=== PATIENT | male | born 2000 | race Caucasian/White ===

== ENCOUNTER 2025-04-29 12:38 | Emergency (ER) | payer MEDICAID, SELFPAY ==
[2025-04-29 12:43] VITALS: BP 145/82; PULSE 86; O2SAT 99
[2025-04-29 12:47] VITALS: BP 145/82; PULSE 74; RESP 16; TEMP 36.7; O2SAT 100; BMI 27.9
[2025-04-29 13:00] VITALS: BP 140/81; PULSE 66; O2SAT 100
[2025-04-29 13:30] VITALS: BP 133/76; PULSE 69; O2SAT 100
--- NOTE | 2025-04-29 13:33 | CT_ITS ---
FINAL REPORT TECHNIQUE: Thin section axial images were obtained through the cervical spine without contrast. Multiplanar reconstruction images were obtained from the axial data. Exam was performed using dose reduction techniques. CLINICAL HISTORY: Crush injury FINDINGS: There is no acute fracture or acute malalignment of the cervical spine. There is no evidence of unilateral or bilateral facet lock. Vertebral body height is preserved. No acute paraspinal abnormality is identified. IMPRESSION: No acute osseous abnormality of the cervical spine. Reviewed, Interpreted and Dictated by Calista Hardwick MD Transcribed by Maria A Dave Authenticated and [facility]
--- NOTE | 2025-04-29 13:33 | CT_ITS ---
FINAL REPORT TECHNIQUE: Thin section axial images were obtained through the lumbar spine without contrast. Sagittal and coronal reconstruction images were obtained from the axial data. Exam was performed using dose reduction techniques. CLINICAL HISTORY: Crush injury FINDINGS: There is no acute fracture or acute malalignment of the lumbar spine. Vertebral body height is preserved. There is no significant central stenosis. Paraspinal soft tissues are within normal limits. There is no paraspinal mass or fluid collection. IMPRESSION: No acute abnormality of the lumbar spine. Reviewed, Interpreted and Dictated by Calista Hardwick MD Transcribed by Maria A Dave Authenticated and [facility]
--- NOTE | 2025-04-29 13:33 | CT_ITS ---
FINAL REPORT TECHNIQUE: Thin section axial images were obtained through the thoracic spine without contrast. Sagittal and coronal images were obtained from the axial data. This study was performed with techniques to keep radiation doses as low as reasonably achievable, (ALARA). Individualized dose reduction techniques using automated exposure control or adjustment of mA and/or kV according to the patient's size were employed. CLINICAL HISTORY: Crush injury FINDINGS: There is no acute fracture of the thoracic spine. There is no malalignment. No acute paraspinal abnormality is identified. IMPRESSION: No acute osseous abnormality of the thoracic spine. Reviewed, Interpreted and Dictated by Calista Hardwick MD Transcribed by Maria A Dave Authenticated and [facility]
--- NOTE | 2025-04-29 13:33 | CT_ITS ---
FINAL REPORT TECHNIQUE: Thin section axial images were obtained from skull base to vertex without contrast. Coronal reconstruction images were obtained from the axial data. Exam was performed using dose reduction techniques such as automated exposure control, adjustment of the mA and kV according to patient size, and use of iterative reconstruction technique. CLINICAL HISTORY: Crush injury FINDINGS: There is no mass effect or midline shift. There is no hydrocephalus. There is no intracranial hemorrhage. The posterior fossa is without acute abnormality. The basilar cisterns are preserved. The soft tissues are without acute abnormality. No acute osseous abnormality is identified. IMPRESSION: No acute intracranial abnormality. Reviewed, Interpreted and Dictated by Calista Hardwick MD Transcribed by Maria A Dave Authenticated and [facility]
--- NOTE | 2025-04-29 13:39 | [facility].EDGENADL ---
Discharge Plan Disposition Patient Disposition: Home, Self-Care Condition: Good Prescriptions Prescriptions: New methocarbamol 750 mg tablet 1,500 mg PO Q8H 7 Days Qty: 42 0RF Referrals Follow up/Referrals: Provider,Referral, [Primary Care Provider, Medical] - See instructions Activity Restrictions/Add. Instructions Additional Instructions/Restrictions: You can take Robaxin for 3 times daily for 7 days for pain and muscle relaxation. If any new or worsening symptoms please return. Clinical Impressions Clinical Impression: Back pain Qualifiers: Back pain location: thoracic back pain Chronicity: acute Back pain laterality: unspecified Qualified Code(s): M54.6 - Pain in thoracic spine Stand Alone Forms Stand Alone Forms: Work/School Release Print Language Print Language: Hebrew Discharge ED Provider: Lcua Escobedo Adult HPI General Chief complaint: PAIN Stated complaint: AO 1130-Pain neck-back and head Time Seen by Provider: 04/29/25 13:17 Mode of Arrival: Ambulatory Source of Information: Patient and Significant Other Description of Symptoms (Recalled from ER Triage Doc. by RN): PATIENT PRESENTS TO ED FOR HEAD, NECK, AND BACK PAIN FOLLOWING ACCIDENT WHILE AT WORK. STATES A COWORKER FELL AND KNOCKED HIM DOWN HARD, PT HIT HEAD, NECK, AND BACK ON LUMBER AND LADDER FELL ON HIM WELL. PLACED IN C-COLLAR UNTIL C-SPINE CLEARED. History of Present Illness HPI narrative: This is a 24-year-old male patient, with no significant past medical history, who is presenting to the emergency department today for evaluation after a traumatic accident. Patient states that he was working on a job site and was holding a ladder while someone else was working approximately 8 foot high on the ladder. The ladder became unsteady and the gentleman on the ladder fell backwards and the full weight of the other person and the full weight of the ladder landed directly on the anterior aspect of his body. He was crushed between this other person/the ladder and between some wooden pallets below. He comes in complaining of head pain, neck pain, and back pain. No numbness or tingling in his treatment's. No visual deficits. No nausea or vomiting. No gait disturbances Related Data Previous Rx's ?Medication ?Instructions ?Recorded methocarbamol 750 mg tablet 1,500 mg (2 x 750 mg) PO Q8H 7 04/29/25 days #42 tabs Allergies Allergy/AdvReac Type Severity Reaction Status Date / Time No Known Allergies Allergy Verified 04/29/25 13:55 [facility] Disclaimer: The information contained in this section may have been updated after the patient was seen, as this information can be updated by other users. Social History Smoking Status: Current every day smoker alcohol intake: never current occupational status: employed Travel in the last 8 weeks?: None ROS Obtained: Yes Systems reviewed as appropriate & no additional complaints except as documented Physical Exam General General appearance: other (See MDM) Respiratory Respiratory exam: Present other (See MDM) Cardiovascular Cardiovascular exam: Present other (See MDM) Neurological Exam Neurological exam: Present other (See MDM) Medical Decision Making Medical Records Medical records reviewed: Yes I reviewed the patient's medical records. Screening: Per USPSTF and CDC recommendations, given the prevalence of disease in our region, it is our hospital?s policy to screen for HIV and viral Hepatitis for all patients aged 18 and over and those with ongoing risk factors. Landon Inquiry Pt receiving controlled substance: No Landon was queried for this patient: No Vital Signs: 04/29/25 12:43 04/29/25 12:47 04/29/25 12:47 Temperature 98.0 F 98.0 F Temperature Source Oral Pulse Rate 86 74 Pulse Rate [Right] 74 Respiratory Rate 16 16 Blood Pressure 145/82 H 145/82 H Blood Pressure [Right Arm] 145/82 H Blood Pressure Mean [Right Arm] 103 02 Sat by Pulse Oximetry 99 100 100 04/29/25 13:00 04/29/25 13:30 04/29/25 14:01 Temperature Temperature Source Pulse Rate 66 69 66 Pulse Rate [Right] Respiratory Rate Blood Pressure 140/81 133/76 130/74 Blood Pressure [Right Arm] Blood Pressure Mean [Right Arm] 02 Sat by Pulse Oximetry 100 100 99 04/29/25 14:46 Temperature 98.0 F Temperature Source Pulse Rate 63 Pulse Rate [Right] Respiratory Rate 16 Blood Pressure 152/91 H Blood Pressure [Right Arm] Blood Pressure Mean [Right Arm] 02 Sat by Pulse Oximetry Orders (Tests/Meds): ED MEDICATIONS Discontinued Medications Generic Name Dose Route Start Last Admin Trade Name Freq PRN Reason Stop Dose Admin Acetaminophen 1,000 mg 04/29/25 13:42 04/29/25 13:57 Acetaminophen 500mg Tab PO 04/29/25 13:43 1,000 mg ONCE ONE Administration Ibuprofen 400 mg 04/29/25 13:56 04/29/25 14:01 Ibuprofen 400 Mg Tablet PO 04/29/25 13:57 400 mg ONCE ONE Administration Methocarbamol 1,500 mg 04/29/25 13:42 04/29/25 13:57 Methocarbamol 500mg Tablet PO 04/29/25 13:43 1,500 mg ONCE ONE Administration ORDERS Category Date Time Status CT cervical spine wo con Stat Cat Scan 04/29/25 13:[address] head/brain wo con Stat Cat Scan 04/29/25 13:[address] lumbar spine wo con Stat Cat Scan 04/29/25 13:[address] thoracic spine wo con Stat Cat Scan 04/29/25 13:33 Completed Medical Decision Narrative: In summary, this is a 24-year-old male patient who is presenting to the emergency department today following a crush injury by a ladder/another human while in a job site. He was pinned between this a ladder and the full body weight of another person against a piece of wood. This patient has no comorbidities that would complicate their medical management or care. On initial evaluation of the patient they were resting comfortably in no acute distress and nontoxic in appearance. They are hemodynamically stable, saturating well room air, and are neurologically intact. The patient has a frontal contusion and abrasion. No scalp lacerations, hematomas, or abrasions. He has cervical spine and thoracic spine tenderness to palpation of the midline. No lumbar spine tenderness. No anterior chest wall or intra-abdominal wall tenderness. Pelvis is stable. No deformities of the extremities. Differential diagnose includes intracranial hemorrhage, cervical spine fracture, thoracic spine fracture, lumbar spine fracture, among others Workup was initiated with CT scans of the head and axial spine. Initial inventions included 1500 mg Robaxin, 15 mg Toradol, and [address] scans were personally interpreted by me and demonstrate no obvious large intracranial hemorrhages or acute bony malalignment. On reassessment of the patient he is resting comfortably in no acute distress. I have informed him of his results, and we have decided to have him take robaxin as needed at home for the next week. At this time all questions have been answered and all parties are agreeable with the decision to discharge home. Critical Care Critical Care Time Critical Care Time: No
[2025-04-29] MEDS: METHOCARBAMOL 500MG TABLET 1500 MG PO (13:57)
[2025-04-29] MEDS: ACETAMINOPHEN 500MG TAB 1000 MG PO (13:57)
[2025-04-29 14:01] VITALS: BP 130/74; PULSE 66; O2SAT 99
[2025-04-29] MEDS: IBUPROFEN 400 MG TABLET PO (14:01)
[2025-04-29 14:46] VITALS: BP 152/91; PULSE 63; RESP 16; TEMP 36.7; O2SAT 97
== END 2025-04-29 14:52 | disposition home or self-care (01) ==
PROVIDERS: Emergency Provider Student in an Organized Health Care Education/Training Program
DX: M54.6 Pain in thoracic spine (principal); M54.2 Cervicalgia; R51.9 Headache, unspecified; W20.8XXA Other cause of strike by thrown, projected or falling object, initial encounter
CPT/HCPCS: 70450; 72125; 72128; 72131; 99284; 99285